=== PATIENT | male | born 1995 | race Two or more races ===

== ENCOUNTER 2018-01-12 00:28 | Emergency (ER) | payer OTHER ==
--- NOTE | 2018-01-12 00:48 | ER Report ---
History and Physical Time Seen By MD: 00:47 Hx. of Stated Complaint: PATIENT ATE A DESSERT; VOMITED AND STATES THAT HE DOES NOT FEEL GOOD; STATES THAT HE IS LIGHT HEADED AND HAS AN UPSET STOMACH HPI/ROS CHIEF COMPLAINT: nausea and lightheaded HISTORY OF PRESENT ILLNESS: This is a 22 year old male. He had sudden onset of lightheaded and nausea tonight, now with epigastric area pain. Had eaten an dessert that he thinks caused the problems. He was in good health previously and has no complaints prior to tonight. He denies any diarrhea or trouble with bowel. No problems with urination. No shortness of breath or cough. Allergies: Coded Allergies: No Known Drug Allergies (Unverified , 01/12/18) Home Meds Active Scripts Ondansetron (ZOFRAN ODT) 4 Mg Tab.rapdis, 4 MG PO Q6H PRN for NAUSEA/VOMITING, #20 TAB.ROSEANN 0 Refills Prov:SALENA MATAMOROS MD 01/12/18 Reviewed Nurses Notes: Yes Hx Substance Use Disorder: No Constitutional Vital Sign - Last 24 Hours 01/12/18 01/12/18 01/12/18 01/12/18 00:28 00:34 00:36 00:46 Temp 98.4 Pulse ??? 77 Resp 17 B/P (MAP) 122/57 122/57 (78) 103/39 (60) Pulse Ox 98 O2 Delivery Room Air 01/12/18 01/12/18 01/12/18 01/12/18 00:58 01:00 01:30 01:58 Pulse 78 B/P (MAP) 103/47 (65) 101/49 (66) Pulse Ox 93 93 01/12/18 01/12/18 02:00 02:13 B/P (MAP) 86/49 (61) 96/34 (54) Intake and Output 01/11/18 01/11/18 01/12/18 15:00 23:00 07:00 Intake Total 1000 ml Balance 1000 ml Physical Exam General Appearance: The patient is alert. No acute distress. Eyes: Pupils are equal, round. No pallor, injection or icterus. ENT: Mucous membranes are moist. Normal oral mucosa. Posterior oropharynx is normal. Neck: Supple and non tender. No lymphadenopathy. Respiratory: Lungs are clear to auscultation. Cardiovascular: Regular rate and rhythm. No murmurs, gallops or rubs. Normal capillary refill. Gastrointestinal: Abdomen is soft, with some epigastric discomfort on palpation. Nondistended. Normal active bowel sounds. No costovertebral angle tenderness with percussion. Neurological: Alert and oriented x3. No focal neurologic deficits Skin: Warm and dry. DIFFERENTIAL DIAGNOSIS: After history and physical exam, differential diagnosis was considered for epigastric pain, nausea and vomiting, likely due to bad food exposure, but will check for other causes of epigastric pain as well. Medical Decision Making Data Points Result Diagram: 01/12/18 0043 01/12/18 0043 Laboratory Hematology Test 01/12/18 00:43 01/12/18 01:16 Red Blood Count 5.43 M/uL (4.00-5.60) Mean Corpuscular Volume 90.7 fL (80.0-96.0) Mean Corpuscular Hemoglobin 31.8 pg (26.0-33.0) Mean Corpuscular Hemoglobin Concent 35.1 g/dL (32.0-36.0) Red Cell Distribution Width 13.7 % (11.5-14.5) Mean Platelet Volume 9.6 fL (7.2-11.1) Neutrophils (%) (Auto) 65.9 % (39.4-72.5) Lymphocytes (%) (Auto) 22.6 % (17.6-49.6) Monocytes (%) (Auto) 5.6 % (4.1-12.4) Eosinophils (%) (Auto) 5.4 % (0.4-6.7) Basophils (%) (Auto) 0.5 % (0.3-1.4) Nucleated RBC Relative Count (auto) 0.1 /100WBC Neutrophils # (Auto) 4.1 K/uL (2.0-7.4) Lymphocytes # (Auto) 1.4 K/uL (1.3-3.6) Monocytes # (Auto) 0.4 K/uL (0.3-1.0) Eosinophils # (Auto) 0.3 K/uL (0.0-0.5) Basophils # (Auto) 0.0 K/uL (0.0-0.1) Nucleated RBC Absolute Count (auto) 0.01 K/uL Sodium Level 141 mmol/L (137-145) Potassium Level 3.7 mmol/L (3.5-5.0) Chloride Level 102 mmol/L (98-107) Carbon Dioxide Level 27 mmol/L (22-30) Blood Urea Nitrogen 21 mg/dl (9-21) Creatinine 1.00 mg/dl (0.66-1.25) Glomerular Filtration Rate Calc > 60.0 Random Glucose 136 mg/dl (75-110) Calcium Level 8.7 mg/dl (8.4-10.2) Total Bilirubin 0.5 mg/dl (0.2-1.3) Aspartate Amino Transf (AST/SGOT) 40 U/L (0-35) Alanine Aminotransferase (ALT/SGPT) 87 U/L (0-56) Alkaline Phosphatase 61 U/L (0-126) Total Protein 7.6 g/dl (6.3-8.2) Albumin 4.3 g/dl (3.5-5.0) Amylase Level 72 U/L (0-110) Lipase 74 U/L (23-300) Urine Color Yellow Urine Clarity Clear Urine pH 5.0 pH (4.8-9.5) Urine Specific [place] 1.028 Urine Protein Negative mg/dL (NEGATIVE) Urine Glucose (UA) Negative mg/dL (NEGATIVE) Urine Ketones Negative mg/dL (NEGATIVE) Urine Blood Negative (NEGATIVE) Urine Nitrite Negative (NEGATIVE) Urine Bilirubin Negative (NEGATIVE) Urine Urobilinogen 2.0 mg/dL (0.2-1.9) Urine Leukocyte Esterase Negative (NEGATIVE) Urine RBC <1 /HPF (0-2/HPF) Urine WBC <1 /HPF (0-5/HPF) Urine Squamous Epithelial Cells None /LPF (</=FEW) Urine Bacteria Negative /HPF (NONE-FEW) Urine Mucus Few /HPF (NONE-FEW) Chemistry Test 01/12/18 00:43 01/12/18 01:16 White Blood Count 6.3 k/uL (4.5-11.0) Red Blood Count 5.43 M/uL (4.00-5.60) Hemoglobin 17.3 g/dL (14.0-18.0) Hematocrit 49.3 % (42.0-52.0) Mean Corpuscular Volume 90.7 fL (80.0-96.0) Mean Corpuscular Hemoglobin 31.8 pg (26.0-33.0) Mean Corpuscular Hemoglobin Concent 35.1 g/dL (32.0-36.0) Red Cell Distribution Width 13.7 % (11.5-14.5) Platelet Count 198 K/uL (150-450) Mean Platelet Volume 9.6 fL (7.2-11.1) Neutrophils (%) (Auto) 65.9 % (39.4-72.5) Lymphocytes (%) (Auto) 22.6 % (17.6-49.6) Monocytes (%) (Auto) 5.6 % (4.1-12.4) Eosinophils (%) (Auto) 5.4 % (0.4-6.7) Basophils (%) (Auto) 0.5 % (0.3-1.4) Nucleated RBC Relative Count (auto) 0.1 /100WBC Neutrophils # (Auto) 4.1 K/uL (2.0-7.4) Lymphocytes # (Auto) 1.4 K/uL (1.3-3.6) Monocytes # (Auto) 0.4 K/uL (0.3-1.0) Eosinophils # (Auto) 0.3 K/uL (0.0-0.5) Basophils # (Auto) 0.0 K/uL (0.0-0.1) Nucleated RBC Absolute Count (auto) 0.01 K/uL Glomerular Filtration Rate Calc > 60.0 Calcium Level 8.7 mg/dl (8.4-10.2) Total Bilirubin 0.5 mg/dl (0.2-1.3) Aspartate Amino Transf (AST/SGOT) 40 U/L (0-35) Alanine Aminotransferase (ALT/SGPT) 87 U/L (0-56) Alkaline Phosphatase 61 U/L (0-126) Total Protein 7.6 g/dl (6.3-8.2) Albumin 4.3 g/dl (3.5-5.0) Amylase Level 72 U/L (0-110) Lipase 74 U/L (23-300) Urine Color Yellow Urine Clarity Clear Urine pH 5.0 pH (4.8-9.5) Urine Specific [place] 1.028 Urine Protein Negative mg/dL (NEGATIVE) Urine Glucose (UA) Negative mg/dL (NEGATIVE) Urine Ketones Negative mg/dL (NEGATIVE) Urine Blood Negative (NEGATIVE) Urine Nitrite Negative (NEGATIVE) Urine Bilirubin Negative (NEGATIVE) Urine Urobilinogen 2.0 mg/dL (0.2-1.9) Urine Leukocyte Esterase Negative (NEGATIVE) Urine RBC <1 /HPF (0-2/HPF) Urine WBC <1 /HPF (0-5/HPF) Urine Squamous Epithelial Cells None /LPF (</=FEW) Urine Bacteria Negative /HPF (NONE-FEW) Urine Mucus Few /HPF (NONE-FEW) Urinalysis Test 01/12/18 01:16 Urine Color Yellow Urine Clarity Clear Urine pH 5.0 pH (4.8-9.5) Urine Specific [place] 1.028 Urine Protein Negative mg/dL (NEGATIVE) Urine Glucose (UA) Negative mg/dL (NEGATIVE) Urine Ketones Negative mg/dL (NEGATIVE) Urine Blood Negative (NEGATIVE) Urine Nitrite Negative (NEGATIVE) Urine Bilirubin Negative (NEGATIVE) Urine Urobilinogen 2.0 mg/dL (0.2-1.9) Urine Leukocyte Esterase Negative (NEGATIVE) Urine RBC <1 /HPF (0-2/HPF) Urine WBC <1 /HPF (0-5/HPF) Urine Squamous Epithelial Cells None /LPF (</=FEW) Urine Bacteria Negative /HPF (NONE-FEW) Urine Mucus Few /HPF (NONE-FEW) ED Course/Re-evaluation Clinical Indication for ER IV: Hydration, IV Access ED Course Labs unremarkable. The patient felt better with a GI cocktail, Protonix and Zofran and a liter of fluid. Likely preformed food toxin/bad food exposure, although can't rule out viral process as well although this is felt to be less likely. Recommended increasing fluid intake and rest over the next few days. Decision to Disposition Date: Jan 12, 2018 Decision to Disposition Time: 02:03 Depart Departure Latest Vital Signs Vital Signs Date Time Temp Pulse Resp B/P (MAP) Pulse Ox O2 Delivery O2 Flow Rate FiO2 01/12/18 02:13 96/34 (54) 01/12/18 01:58 93 01/12/18 00:58 78 01/12/18 00:34 98.4 17 Room Air Impression: Primary Impression: Food poisoning Condition: Improved Disposition: HOME OR SELF-CARE New Scripts Ondansetron (ZOFRAN ODT) 4 Mg Tab.rapdis 4 MG PO Q6H PRN for NAUSEA/VOMITING, #20 TAB.ROSEANN 0 Refills Prov: SALENA MATAMOROS MD 01/12/18 Patient Instructions: Food Poisoning (ED) Additional Instructions: Rest and increase fluids over the next few days. You may take Zofran 4mg, one every 6hours as needed for nausea. You can use an anti-acid medicine for nausea and stomach pain. Problem Qualifiers Primary Impression: Food poisoning Encounter type: initial encounter Injury intent: accidental or unintenti onal Qualified Codes: T62.91XA - Toxic effect of unspecified noxious substance eaten as food, accidental (unintentional), initial encounter SALENA MATAMOROS MD Jan 12, 2018 00:48
[2018-01-12] MEDS ORDERED: PANTOPRAZOLE SOD 40 MG IV VIAL IVP ONE (00:55)
[2018-01-12] MEDS ORDERED: ONDANSETRON 4 MG/2 ML VIAL IVP ONE (00:55)
[2018-01-12] MEDS ORDERED: NS(*) 0.9% 1000 ML BAG 1,000 ML IV ONE (00:55)
[2018-01-12 01:06] LABS: PLATELET COUNT, AUTOMATED 198 K/uL (150-450)
[2018-01-12] MEDS ORDERED: LIDOCAINE 2% VISC SLN 15ML UDC PO ONE (01:25)
[2018-01-12] MEDS ORDERED: ATRO/SCOPOL/HYOSCY/PB 5 ML ELX PO ONE (01:25)
[2018-01-12] MEDS ORDERED: MAG HYD/AL HYD/SIMETH 30ML UDC PO ONE (01:25)
[2018-01-12] MEDS ORDERED: ONDA4TAB PO (02:05)
[2018-01-12] MEDS ORDERED: ONDANSETRON 4 MG ODT TH SL ONE (02:10)
[2018-01-12 02:13] VITALS: BP 96/34
== END 2018-01-12 02:25 | disposition home or self-care (01) ==
LOC: ER 00:40
DX: T62.91XA Toxic effect of unspecified noxious substance eaten as food, accidental (unintentional), initial encounter (principal)
CPT/HCPCS: 81001; 82150; 83690; 85025; 96361; 96374; 96375; 99284; C9113; J2405; J7030; S0119; 82040; 82247; 82310; 82374; 82435; 82565; 82947; 84075; 84132; 84155; 84295; 84450; 84460; 84520

== ENCOUNTER 2018-04-29 10:29 | Emergency (ER) | payer OTHER ==
[~2018-04-29 10:29] MED LIST: ONDA4TAB PO
[2018-04-29 10:39] VITALS: BP 145/111
[2018-04-29 11:19] LABS: PLATELET COUNT, AUTOMATED 210 K/uL (150-450)
--- NOTE | 2018-05-05 15:49 | ER Report ---
History and Physical Time Seen By MD: 10:35 Hx. of Stated Complaint: PATIENT REPORTS THAT HE HAS BEEN FEELING SUICIDAL FOR MOST OF THE SEMESTER. 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 Patient reports having increased life stressors with school and family. Denies prior history of suicide attempts, seeing therapist, or plan. Denies taking medications in attempt to harm himself. He does admit to alcohol and cocaine use. REVIEW OF SYSTEMS: Constitutional: No fever, no chills. Eyes: No discharge. ENT: No sore throat. Cardiovascular: No chest pain, no palpitations. Respiratory: No cough, no shortness of breath. Gastrointestinal: No abdominal pain, no vomiting. Genitourinary: No hematuria. Musculoskeletal: No back pain. Skin: No rashes. Neurological: No headache. Psych: + depression SI without plan Allergies: Coded Allergies: No Known Drug Allergies (Unverified , 05/04/18) Home Meds Discontinued Scripts Ondansetron (ZOFRAN ODT) 4 Mg Tab.rapdis, 4 MG PO Q6H PRN for NAUSEA/VOMITING, #20 TAB.ROSEANN 0 Refills Prov:SALENA MATAMOROS MD 01/12/18 Hx Substance Use Disorder: No Physical Exam General Appearance: The patient is alert, has no immediate need for airway protection and no signs of toxicity. No acute distress Eyes: Pupils equal and round no pallor or injection. ENT, Mouth: Mucous membranes are moist. Respiratory: There are no retractions, lungs are clear to auscultation. Cardiovascular: Regular rate and rhythm. [ ] Gastrointestinal: Abdomen is soft and non tender, no masses, bowel sounds no rmal. Neurological: No focal neurological deficits Skin: Warm and dry, no rashes. Musculoskeletal: Neck is supple non tender. Extremities are nontender, nonswollen and have full range of motion. Psychiatric: Suicidal ideations without plan, depressed appearing DIFFERENTIAL DIAGNOSIS: After history and physical exam differential diagnosis was considered for depression, suicidal ideations, increased life stressors, substance abuse Medical Decision Making Data Points Laboratory Hematology Test 04/29/18 10:32 04/29/18 11:13 Urine Color Yellow Urine Clarity Clear Urine pH 7.0 pH (4.8-9.5) Urine Specific [place] 1.023 Urine Protein 30 mg/dL (NEGATIVE) Urine Glucose (UA) Negative mg/dL (NEGATIVE) Urine Ketones 80 mg/dL (NEGATIVE) Urine Blood Negative (NEGATIVE) Urine Nitrite Negative (NEGATIVE) Urine Bilirubin Negative (NEGATIVE) Urine Urobilinogen 4.0 mg/dL (0.2-1.9) Urine Leukocyte Esterase Negative (NEGATIVE) Urine RBC 1 /HPF (0-2/HPF) Urine WBC None /HPF (0-5/HPF) Urine Squamous Epithelial Cells None /LPF (</=FEW) Urine Bacteria Negative /HPF (NONE-FEW) Urine Mucus Few /HPF (NONE-FEW) Urine Opiates Screen Negative Urine Barbiturates Screen Negative Ur Tricyclic Antidepressants Screen Negative Urine Phencyclidine Screen Negative Urine Amphetamines Screen Negative Urine Benzodiazepines Screen Negative Urine Cocaine Screen Negative Urine Cannabinoids Screen Positive Red Blood Count 6.22 M/uL (4.00-5.60) Mean Corpuscular Volume 89.3 fL (80.0-96.0) Mean Corpuscular Hemoglobin 30.7 pg (26.0-33.0) Mean Corpuscular Hemoglobin Concent 34.4 g/dL (32.0-36.0) Red Cell Distribution Width 13.0 % (11.5-14.5) Mean Platelet Volume 9.6 fL (7.2-11.1) Neutrophils (%) (Auto) 77.5 % (39.4-72.5) Lymphocytes (%) (Auto) 12.2 % (17.6-49.6) Monocytes (%) (Auto) 8.3 % (4.1-12.4) Eosinophils (%) (Auto) 1.6 % (0.4-6.7) Basophils (%) (Auto) 0.4 % (0.3-1.4) Nucleated RBC Relative Count (auto) 0.1 /100WBC Neutrophils # (Auto) 6.1 K/uL (2.0-7.4) Lymphocytes # (Auto) 1.0 K/uL (1.3-3.6) Monocytes # (Auto) 0.7 K/uL (0.3-1.0) Eosinophils # (Auto) 0.1 K/uL (0.0-0.5) Basophils # (Auto) 0.0 K/uL (0.0-0.1) Nucleated RBC Absolute Count (auto) 0.00 K/uL Sodium Level 141 mmol/L (137-145) Potassium Level 3.7 mmol/L (3.5-5.0) Chloride Level 103 mmol/L (98-107) Carbon Dioxide Level 21 mmol/L (22-30) Blood Urea Nitrogen 13 mg/dl (9-21) Creatinine 0.80 mg/dl (0.66-1.25) Glomerular Filtration Rate Calc > 60.0 Random Glucose 97 mg/dl (75-110) Calcium Level 10.1 mg/dl (8.4-10.2) Magnesium Level 1.8 mg/dl (1.7-2.2) Total Bilirubin 2.2 mg/dl (0.2-1.3) Aspartate Amino Transf (AST/SGOT) 37 U/L (0-35) Alanine Aminotransferase (ALT/SGPT) 73 U/L (0-56) Alkaline Phosphatase 86 U/L (0-126) Total Protein 8.4 g/dl (6.3-8.2) Albumin 4.5 g/dl (3.5-5.0) Thyroid Stimulating Hormone (TSH) 1.11 uIU/ml (0.46-4.68) Salicylates Level < 10 mg/L Salicylate Last Dose Date unknown Acetaminophen Level < 10 ug/ml Serum Alcohol < 10 mg/dl Chemistry Test 04/29/18 10:32 04/29/18 11:13 Urine Color Yellow Urine Clarity Clear Urine pH 7.0 pH (4.8-9.5) Urine Specific [place] 1.023 Urine Protein 30 mg/dL (NEGATIVE) Urine Glucose (UA) Negative mg/dL (NEGATIVE) Urine Ketones 80 mg/dL (NEGATIVE) Urine Blood Negative (NEGATIVE) Urine Nitrite Negative (NEGATIVE) Urine Bilirubin Negative (NEGATIVE) Urine Urobilinogen 4.0 mg/dL (0.2-1.9) Urine Leukocyte Esterase Negative (NEGATIVE) Urine RBC 1 /HPF (0-2/HPF) Urine WBC None /HPF (0-5/HPF) Urine Squamous Epithelial Cells None /LPF (</=FEW) Urine Bacteria Negative /HPF (NONE-FEW) Urine Mucus Few /HPF (NONE-FEW) Urine Opiates Screen Negative Urine Barbiturates Screen Negative Ur Tricyclic Antidepressants Screen Negative Urine Phencyclidine Screen Negative Urine Amphetamines Screen Negative Urine Benzodiazepines Screen Negative Urine Cocaine Screen Negative Urine Cannabinoids Screen Positive White Blood Count 7.9 k/uL (4.5-11.0) Red Blood Count 6.22 M/uL (4.00-5.60) Hemoglobin 19.1 g/dL (14.0-18.0) Hematocrit 55.5 % (42.0-52.0) Mean Corpuscular Volume 89.3 fL (80.0-96.0) Mean Corpuscular Hemoglobin 30.7 pg (26.0-33.0) Mean Corpuscular Hemoglobin Concent 34.4 g/dL (32.0-36.0) Red Cell Distribution Width 13.0 % (11.5-14.5) Platelet Count 210 K/uL (150-450) Mean Platelet Volume 9.6 fL (7.2-11.1) Neutrophils (%) (Auto) 77.5 % (39.4-72.5) Lymphocytes (%) (Auto) 12.2 % (17.6-49.6) Monocytes (%) (Auto) 8.3 % (4.1-12.4) Eosinophils (%) (Auto) 1.6 % (0.4-6.7) Basophils (%) (Auto) 0.4 % (0.3-1.4) Nucleated RBC Relative Count (auto) 0.1 /100WBC Neutrophils # (Auto) 6.1 K/uL (2.0-7.4) Lymphocytes # (Auto) 1.0 K/uL (1.3-3.6) Monocytes # (Auto) 0.7 K/uL (0.3-1.0) Eosinophils # (Auto) 0.1 K/uL (0.0-0.5) Basophils # (Auto) 0.0 K/uL (0.0-0.1) Nucleated RBC Absolute Count (auto) 0.00 K/uL Glomerular Filtration Rate Calc > 60.0 Calcium Level 10.1 mg/dl (8.4-10.2) Magnesium Level 1.8 mg/dl (1.7-2.2) Total Bilirubin 2.2 mg/dl (0.2-1.3) Aspartate Amino Transf (AST/SGOT) 37 U/L (0-35) Alanine Aminotransferase (ALT/SGPT) 73 U/L (0-56) Alkaline Phosphatase 86 U/L (0-126) Total Protein 8.4 g/dl (6.3-8.2) Albumin 4.5 g/dl (3.5-5.0) Thyroid Stimulating Hormone (TSH) 1.11 uIU/ml (0.46-4.68) Salicylates Level < 10 mg/L Salicylate Last Dose Date unknown Acetaminophen Level < 10 ug/ml Serum Alcohol < 10 mg/dl Toxicology Test 04/29/18 10:32 04/29/18 11:13 Urine Opiates Screen Negative Urine Barbiturates Screen Negative Ur Tricyclic Antidepressants Screen Negative Urine Phencyclidine Screen Negative Urine Amphetamines Screen Negative Urine Benzodiazepines Screen Negative Urine Cocaine Screen Negative Urine Cannabinoids Screen Positive Salicylates Level < 10 mg/L Salicylate Last Dose Date unknown Acetaminophen Level < 10 ug/ml Serum Alcohol < 10 mg/dl Urinalysis Test 04/29/18 10:32 Urine Color Yellow Urine Clarity Clear Urine pH 7.0 pH (4.8-9.5) Urine Specific [place] 1.023 Urine Protein 30 mg/dL (NEGATIVE) Urine Glucose (UA) Negative mg/dL (NEGATIVE) Urine Ketones 80 mg/dL (NEGATIVE) Urine Blood Negative (NEGATIVE) Urine Nitrite Negative (NEGATIVE) Urine Bilirubin Negative (NEGATIVE) Urine Urobilinogen 4.0 mg/dL (0.2-1.9) Urine Leukocyte Esterase Negative (NEGATIVE) Urine RBC 1 /HPF (0-2/HPF) Urine WBC None /HPF (0-5/HPF) Urine Squamous Epithelial Cells None /LPF (</=FEW) Urine Bacteria Negative /HPF (NONE-FEW) Urine Mucus Few /HPF (NONE-FEW) ED Course/Re-evaluation ED Course 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 Patient denied suicidal plan at this time and does admit to cocaine, cannabis and alcohol use. Tylenol and salicylate levels were negative. Patient was seen by behavioral health chemical lab technician who supplied him with outpatient resources and patient again contracted for safety prior to discharge. Patient was advised to return promptly if he developed worsening suicidal ideation or suicidal plan. Decision to Disposition Date: Apr 29, 2018 Decision to Disposition Time: 12:00 Depart Departure Impression: Primary Impression: Suicidal ideations Condition: Improved Disposition: HOME OR SELF-CARE New Scripts No Active Prescriptions or Reported Meds Departure Forms: Medications Reconciliation, Patient Portal Information, ER Transition Record Patient Instructions: Depression (ED) Additional Instructions: Please return promptly if you develop thoughts of self-harm, worsening depression. You been provided with outpatient resources for psychiatric follow- up. Please call the suicide hotline if you develop thoughts of self-harm. Please consider cessation of substance abuse as this may increase your depression. GRACE HUNTER DO May 05, 2018 15:49
== END 2018-04-29 12:07 | disposition home or self-care (01) ==
LOC: ER 10:43
DX: R45.851 Suicidal ideations (principal)
CPT/HCPCS: 80305; 80320; 80329; 81001; 82040; 82247; 82310; 82374; 82435; 82565; 82947; 83735; 84075; 84132; 84155; 84295; 84443; 84450; 84460; 84520; 85025; 99283

== ENCOUNTER 2018-05-17 03:00 | Emergency (ER) | payer OTHER ==
[~2018-05-17 03:00] MED LIST changes: +BUPR-126 PO; +CHOL10005 PO; +MULT-1379 PO; +NIC10R INH; +NICOTROL INHALER PO; +TRAZ150T8 PO
--- NOTE | 2018-05-17 03:09 | ER Report ---
History and Physical Time Seen By MD: 03:09 Hx. of Stated Complaint: patient fell onleft arm yesterday while snowboarding, didn't start having pain in left elbow until he woke up around 0230 this am. HPI/ROS CHIEF COMPLAINT: Left elbow pain HISTORY OF PRESENT ILLNESS: Patient is a 22-year-old male here with complaints of left elbow pain after falling on his left elbow yesterday while snowboarding. Patient did not have complaints of pain until approximately 2:30 this morning when the patient woke up. He reports pain with range of motion of the elbow though there is no deformity or neurovascular compromise distal to the injury site. Patient denies further injuries at this time REVIEW OF SYSTEMS: Constitutional: No fever, no chills. Musculoskeletal: + left elbow pain with ROM and palpation Skin: No rashes. Neurological: NV intact in the distal extremity Allergies: Coded Allergies: No Known Drug Allergies (Unverified , 05/17/18) Home Meds Active Scripts Tramadol Hcl (TRAMADOL HCL) 50 Mg Tablet, 50 MG PO Q6H PRN for PAIN, #6 TAB 0 Refills Prov:HUNTERGRACE Mackey DO 05/17/18 Reported Medications Bupropion Hcl (WELLBUTRIN SR) 150 Mg Tablet.er, 150 MG PO QAM, TAB 05/07/18 Cholecalciferol (Vitamin D3) (VITAMIN D3) 1,000 Unit Tablet, 4000 UNIT PO QDAYA, TAB 05/07/18 Trazodone Hcl (TRAZODONE HCL) 150 Mg Tablet, 50-150 MG PO QHS PRN for INSOMNIA TAKE 1/3 TO ONE TABLET (50 - 150 MG) ABOUT AN HOUR BEFORE YOU PLAN TO GO TO SLEEP. 05/07/18 Discontinued Reported Medications [Nicotrol Inhaler] No Conflict Check, 1 EA PO PRN PRN for NI 05/07/18 Nicotine (NICOTROL) 10 Mg/Inh Ctr, 10 MG INH Q2H PRN for NICOTINE REPLACEMENT 05/07/18 Multivits, W-Fe,Other Min (THERA-M) 1 Each Tablet, 1 EACH PO DAILY 05/07/18 Hx Smoking: Yes Smoking Status: Smoker: Status Unknown Hx Substance Use Disorder: No Constitutional Vital Sign - Last 24 Hours 05/17/18 03:04 Temp 98.5 Pulse 86 Resp 24 B/P (MAP) 121/61 Pulse Ox 91 O2 Delivery Room Air Physical Exam General Appearance: The patient is alert, has no immediate need for airway protection and no signs of toxicity. Mild distress due to pain Neurological: NV intact in distal extremity Skin: Warm and dry, no rashes. Musculoskeletal: Neck is supple non tender. + left elbow tender on examination and with ROM DIFFERENTIAL DIAGNOSIS: After history and physical exam differential diagnosis was considered for fracture, contusion, bursitis, tendinitis Medical Decision Making EKG/Imaging Imaging Location: [facility] - [place] Patient: Edmund Araiza : 1995 Visit/Account:[id number] Date of Sevice: 05/17/2018 ELBOW 3 VIEW LEFT HISTORY: fall Three-view examination of the elbow. FINDINGS: No acute bony pathology. Distal left humerus and proximal radius/ulna well- maintained. No joint effusion. Soft tissues unremarkable. IMPRESSION: 1. Negative left elbow ED Course/Re-evaluation ED Course Patient is a 22-year-old male here with complaints of left elbow pain which started approximately 2:30 this morning. Patient reportedly fell on the elbow yesterday while snowboarding however did not have pain until this morning. Patient was given Toradol for analgesia, x-ray imaging showed no acute fracture. Ice was applied to the elbow. Patient was advised to rest, ice, use sling, take NSAIDs as needed for primary pain control. Prescription provided for tramadol for breakthrough pain. Return precautions provided Decision to Disposition Date: May 17, 2018 Decision to Disposition Time: 04:49 Depart Departure Latest Vital Signs Vital Signs Date Time Temp Pulse Resp B/P (MAP) Pulse Ox O2 Delivery O2 Flow Rate FiO2 05/17/18 03:04 98.5 86 24 121/61 91 Room Air Impression: Primary Impression: Elbow pain Condition: Improved Disposition: HOME OR SELF-CARE New Scripts Tramadol Hcl (TRAMADOL HCL) 50 Mg Tablet 50 MG PO Q6H PRN for PAIN, #6 TAB 0 Refills Prov: GRACE HUNTER DO 05/17/18 Patient Instructions: Elbow Sprain (ED) Additional Instructions: No acute fracture is identified on x-ray imaging. You may ice, rest, use a sling, take NSAIDs as needed for primary pain control. Please follow-up with her family doctor in the next week for reevaluation and care. You may take 1 tramado l every 8 hours as needed for breakthrough pain control. GRACE HUNTER DO May 17, 2018 03:09
[2018-05-17] MEDS ORDERED: KETOROLAC 60 MG/2 ML VIAL IM ONE (03:15)
--- NOTE | 2018-05-17 04:30 | RADIOLOGY IMAGING REPORT ---
FACILITY: [facility] - [place] PATIENT NAME: Edmund Araiza : 1995 MR: [id number] V: [id number] EXAM DATE: ORDERING PHYSICIAN: GRACE HUNTER TECHNOLOGIST: Location: [facility] - [place] Patient: Edmund Araiza : 1995 Visit/Account:[id number] Date of Sevice: 05/17/2018 ELBOW 3 VIEW LEFT HISTORY: fall Three-view examination of the elbow. FINDINGS: No acute bony pathology. Distal left humerus and proximal radius/ulna well-maintained. No joint effus ion. Soft tissues unremarkable. IMPRESSION: 1. Negative left elbow Report Dictated By: Max Barnes MD at 05/17/2018 4:23 AM Report E-Signed By: Max Barnes MD at 05/17/2018 4:24 AM WSN:[id number]
[2018-05-17 04:41] VITALS: BP 99/55
[2018-05-17] MEDS ORDERED: TRAM-420 PO (04:41)
== END 2018-05-17 04:53 | disposition home or self-care (01) ==
LOC: ER 03:49
DX: M25.522 Pain in left elbow (principal); W19.XXXA Unspecified fall, initial encounter; Y93.23 Activity, snow (alpine) (downhill) skiing, snowboarding, sledding, tobogganing and snow tubing
CPT/HCPCS: 73080; 96372; 99283; A4565; J1885

== ENCOUNTER 2018-08-24 13:29 | Emergency (ER) | payer OTHER ==
[~2018-08-24 13:29] MED LIST changes: +TRAM-420 PO
[2018-08-24] MEDS ORDERED: HYDR-4228 PO (13:37)
--- NOTE | 2018-08-24 13:40 | ER Report ---
History and Physical Time Seen By MD: 13:40 Hx. of Stated Complaint: BRIGHT RED "CHUNKS" OF VOMIT AND DRY COUGH STARTED THIS AM HPI/ROS CHIEF COMPLAINT: Vomiting, cough HISTORY OF PRESENT ILLNESS: 23-year-old male patient presents to emergency room with complaint of vomiting and cough. Patient states that he woke up this morning had something eat. He states that that he became nauseated and vomited 2. He states that there was blood mixed with the vomit. He denies having any fevers or chills. He denies any diarrhea. Patient states that he has had a dry cough which also started today. Patient states that he is getting over a flu and has had a runny nose for the past few weeks. Patient states he is not taking any medications. He came in for evaluation as he was concerned about the blood in his vomit. REVIEW OF SYSTEMS: Respiratory: As noted above Cardiovascular: No chest pain, no palpitations. Gastrointestinal: As noted above Musculoskeletal: No back pain. Allergies: Coded Allergies: No Known Drug Allergies (Unverified , 08/24/18) Home Meds Active Scripts Ondansetron 4 Mg Odt (ONDANSETRON 4 MG ODT) 4 Mg Tab.rapdis, 4 MG PO Q6H PRN for NAUSEA/VOMITING, #20 TAB Prov:QUINCY SHETH 08/24/18 Reported Medications Hydroxyzine Hcl (HYDROXYZINE HCL) 50 Mg Tablet, PO HS PRN for SLEEP 08/24/18 Bupropion Hcl (WELLBUTRIN SR) 150 Mg Tablet.er, 150 MG PO QAM, TAB 05/07/18 Cholecalciferol (Vitamin D3) (VITAMIN D3) 1,000 Unit Tablet, 4000 UNIT PO QDAYA, TAB 05/07/18 Discontinued Reported Medications Trazodone Hcl (TRAZODONE HCL) 150 Mg Tablet, 50-150 MG PO QHS PRN for INSOMNIA TAKE 1/3 TO ONE TABLET (50 - 150 MG) ABOUT AN HOUR BEFORE YOU PLAN TO GO TO SLEEP. 05/07/18 Discontinued Scripts Tramadol Hcl (TRAMADOL HCL) 50 Mg Tablet, 50 MG PO Q6H PRN for PAIN, #6 TAB 0 Refills Prov:GRACE HUNTER DO 05/17/18 Past Medical/Surgical History Patient has a past medical history of suicide attempt. Patient denies any surgical history. Reviewed Nurses Notes: Yes Hx Smoking: Yes Smoking Status: Smoker: Status Unknown Hx Substance Use Disorder: No Constitutional Vital Sign - Last 24 Hours 08/24/18 08/24/18 08/24/18 08/24/18 13:32 13:45 14:15 14:30 Temp 98.2 Pulse 81 78 73 76 Resp 18 B/P (MAP) 134/51 118/85 (96) Pulse Ox 92 89 95 94 O2 Delivery Room Air 08/24/18 08/24/18 14:44 14:45 Pulse 82 B/P (MAP) 113/72 (86) Pulse Ox 95 Physical Exam General Appearance: The patient is alert, has no immediate need for airway protection and no current signs of toxicity. Respiratory: Chest is non tender, lungs are clear to auscultation. Cardiac: regular rate and rhythm Gastrointestinal: Abdomen is soft and diffusely tender, no masses, bowel sounds normal. Musculoskeletal: Neck: Neck is supple and non tender. Extremities have full range of motion and are non tender. Skin: No rashes or lesions. DIFFERENTIAL DIAGNOSIS: After history and physical exam differential diagnosis was considered for nausea and vomiting including but not limited to gastroenteritis, gastritis, appendicitis, and medication side effect. Included in the differential is upper respiratory infection, sinusitis. Medical Decision Making Data Points Result Diagram: 08/24/18 1348 08/24/18 1348 Laboratory Hematology Test 08/24/18 13:48 08/24/18 14:11 Red Blood Count 5.74 M/uL (4.00-5.60) Mean Corpuscular Volume 92.0 fL (80.0-96.0) Mean Corpuscular Hemoglobin 30.6 pg (26.0-33.0) Mean Corpuscular Hemoglobin Concent 33.3 g/dL (32.0-36.0) Red Cell Distribution Width 12.7 % (11.5-14.5) Mean Platelet Volume 9.0 fL (7.2-11.1) Neutrophils (%) (Auto) 77.7 % (39.4-72.5) Lymphocytes (%) (Auto) 15.9 % (17.6-49.6) Monocytes (%) (Auto) 5.1 % (4.1-12.4) Eosinophils (%) (Auto) 1.0 % (0.4-6.7) Basophils (%) (Auto) 0.3 % (0.3-1.4) Nucleated RBC Relative Count (auto) 0.0 /100WBC Neutrophils # (Auto) 5.1 K/uL (2.0-7.4) Lymphocytes # (Auto) 1.0 K/uL (1.3-3.6) Monocytes # (Auto) 0.3 K/uL (0.3-1.0) Eosinophils # (Auto) 0.1 K/uL (0.0-0.5) Basophils # (Auto) 0.0 K/uL (0.0-0.1) Nucleated RBC Absolute Count (auto) 0.00 K/uL Sodium Level 137 mmol/L (137-145) Potassium Level 4.4 mmol/L (3.5-5.0) Chloride Level 101 mmol/L (98-107) Carbon Dioxide Level 30 mmol/L (22-30) Blood Urea Nitrogen 17 mg/dl (9-21) Creatinine 0.90 mg/dl (0.66-1.25) Glomerular Filtration Rate Calc > 60.0 Random Glucose 98 mg/dl (75-110) Calcium Level 9.1 mg/dl (8.4-10.2) Total Bilirubin 0.6 mg/dl (0.2-1.3) Aspartate Amino Transf (AST/SGOT) 40 U/L (0-35) Alanine Aminotransferase (ALT/SGPT) 59 U/L (0-56) Alkaline Phosphatase 73 U/L (0-126) Total Protein 8.0 g/dl (6.3-8.2) Albumin 4.4 g/dl (3.5-5.0) Amylase Level 74 U/L (0-110) Lipase 85 U/L (23-300) Helicobacter pylori IgG Antibody Negative (NEGATIVE) Urine Color Yellow Urine Clarity Clear Urine pH 8.0 pH (4.8-9.5) Urine Specific [place] 1.025 Urine Protein Negative mg/dL (NEGATIVE) Urine Glucose (UA) Negative mg/dL (NEGATIVE) Urine Ketones Negative mg/dL (NEGATIVE) Urine Blood Negative (NEGATIVE) Urine Nitrite Negative (NEGATIVE) Urine Bilirubin Negative (NEGATIVE) Urine Urobilinogen Negative mg/dL (0.2-1.9) Urine Leukocyte Esterase Negative (NEGATIVE) Urine RBC 1 /HPF (0-2/HPF) Urine WBC <1 /HPF (0-5/HPF) Urine Squamous Epithelial Cells None /LPF (</=FEW) Urine Bacteria Negative /HPF (NONE-FEW) Urine Mucus None /HPF (NONE-FEW) Chemistry Test 08/24/18 13:48 08/24/18 14:11 White Blood Count 6.5 k/uL (4.5-11.0) Red Blood Count 5.74 M/uL (4.00-5.60) Hemoglobin 17.6 g/dL (14.0-18.0) Hematocrit 52.8 % (42.0-52.0) Mean Corpuscular Volume 92.0 fL (80.0-96.0) Mean Corpuscular Hemoglobin 30.6 pg (26.0-33.0) Mean Corpuscular Hemoglobin Concent 33.3 g/dL (32.0-36.0) Red Cell Distribution Width 12.7 % (11.5-14.5) Platelet Count 262 K/uL (150-450) Mean Platelet Volume 9.0 fL (7.2-11.1) Neutrophils (%) (Auto) 77.7 % (39.4-72.5) Lymphocytes (%) (Auto) 15.9 % (17.6-49.6) Monocytes (%) (Auto) 5.1 % (4.1-12.4) Eosinophils (%) (Auto) 1.0 % (0.4-6.7) Basophils (%) (Auto) 0.3 % (0.3-1.4) Nucleated RBC Relative Count (auto) 0.0 /100WBC Neutrophils # (Auto) 5.1 K/uL (2.0-7.4) Lymphocytes # (Auto) 1.0 K/uL (1.3-3.6) Monocytes # (Auto) 0.3 K/uL (0.3-1.0) Eosinophils # (Auto) 0.1 K/uL (0.0-0.5) Basophils # (Auto) 0.0 K/uL (0.0-0.1) Nucleated RBC Absolute Count (auto) 0.00 K/uL Glomerular Filtration Rate Calc > 60.0 Calcium Level 9.1 mg/dl (8.4-10.2) Total Bilirubin 0.6 mg/dl (0.2-1.3) Aspartate Amino Transf (AST/SGOT) 40 U/L (0-35) Alanine Aminotransferase (ALT/SGPT) 59 U/L (0-56) Alkaline Phosphatase 73 U/L (0-126) Total Protein 8.0 g/dl (6.3-8.2) Albumin 4.4 g/dl (3.5-5.0) Amylase Level 74 U/L (0-110) Lipase 85 U/L (23-300) Helicobacter pylori IgG Antibody Negative (NEGATIVE) Urine Color Yellow Urine Clarity Clear Urine pH 8.0 pH (4.8-9.5) Urine Specific [place] 1.025 Urine Protein Negative mg/dL (NEGATIVE) Urine Glucose (UA) Negative mg/dL (NEGATIVE) Urine Ketones Negative mg/dL (NEGATIVE) Urine Blood Negative (NEGATIVE) Urine Nitrite Negative (NEGATIVE) Urine Bilirubin Negative (NEGATIVE) Urine Urobilinogen Negative mg/dL (0.2-1.9) Urine Leukocyte Esterase Negative (NEGATIVE) Urine RBC 1 /HPF (0-2/HPF) Urine WBC <1 /HPF (0-5/HPF) Urine Squamous Epithelial Cells None /LPF (</=FEW) Urine Bacteria Negative /HPF (NONE-FEW) Urine Mucus None /HPF (NONE-FEW) Urinalysis Test 08/24/18 14:11 Urine Color Yellow Urine Clarity Clear Urine pH 8.0 pH (4.8-9.5) Urine Specific [place] 1.025 Urine Protein Negative mg/dL (NEGATIVE) Urine Glucose (UA) Negative mg/dL (NEGATIVE) Urine Ketones Negative mg/dL (NEGATIVE) Urine Blood Negative (NEGATIVE) Urine Nitrite Negative (NEGATIVE) Urine Bilirubin Negative (NEGATIVE) Urine Urobilinogen Negative mg/dL (0.2-1.9) Urine Leukocyte Esterase Negative (NEGATIVE) Urine RBC 1 /HPF (0-2/HPF) Urine WBC <1 /HPF (0-5/HPF) Urine Squamous Epithelial Cells None /LPF (</=FEW) Urine Bacteria Negative /HPF (NONE-FEW) Urine Mucus None /HPF (NONE-FEW) EKG/Imaging Imaging Exam type: ABDOMEN AP ERECT AND/OR DECUB History: cough and vomiting blood Comparison: None. Findings: Supine and upright views the abdomen demonstrate a nonspecific bowel gas pattern. There is no gross evidence of organomegaly or pathologic intra- abdominal calcifications IMPRESSION: 1. Nonspecific bowel gas pattern Report Dictated By: Leilani Chow MD at 08/24/2018 2:27 PM Report E-Signed By: Leilani Chow MD at 08/24/2018 2:28 PM Exam type: CHEST PA LAT History: cough and vomiting blood Comparison: None. Findings: The lungs are free of acute effusions, infiltrates or edema. The cardiac silhouette is normal in size. The trachea is in midline. Visualized bones are unremarkable for age IMPRESSION: 1. No acute cardiopulmonary process is seen Report Dictated By: Leilani Chow MD at 08/24/2018 2:26 PM Report E-Signed By: Leilani Chow MD at 08/24/2018 2:27 PM ED Course/Re-evaluation ED Course Patient is admitted and examined, history and physical were obtained. Differential diagnoses were considered. On examination lungs are clear, heart regular, abdomen is soft and diffusely tender. IV was started, a CBC, CMP, uri nalysis were obtained. Lab results were unremarkable. A chest x-ray and acute abdominal x-ray were done. Those results were negative as well. H. pylori was done which was negative. I discussed the findings with patient. I believe this likely a viral gastroenteritis. We will go ahead and treat him with some nausea medication, have him go on a clear liquid diet for the next 24 hours. He is follow-up with his primary care provider next week. History the emergency room if condition worsens. Patient verbalized understanding and agreement with plan. Decision to Disposition Date: Aug 24, 2018 Decision to Disposition Time: 14:39 Depart Departure Latest Vital Signs Vital Signs Date Time Temp Pulse Resp B/P (MAP) Pulse Ox O2 Delivery O2 Flow Rate FiO2 08/24/18 14:45 82 95 08/24/18 14:44 113/72 (86) 08/24/18 13:32 98.2 18 Room Air Impression: Primary Impression: Gastroenteritis Additional Impression: Cough Condition: Improved Disposition: HOME OR SELF-CARE New Scripts Ondansetron 4 Mg Odt (ONDANSETRON 4 MG ODT) 4 Mg Tab.rapdis 4 MG PO Q6H PRN for NAUSEA/VOMITING, #20 TAB Prov: QUINCY SHETH 08/24/18 Patient Instructions: Gastroenteritis (ED) Additional Instructions: Increase fluid intake. Clear liquid diet for the next 24-48 hours. After that you may advance diet as tolerated starting with complex carbohydrates; rice, bread or pasta. Follow up with your primary care provider in the next week. Return to the ER if condition worsens. Take cough and cold medication for the cough. Problem Qualifiers QUINCY SHETH Aug 24, 2018 13:40
[2018-08-24] MEDS ORDERED: NS(*) 0.9% 1000 ML BAG 1,000 ML IV ONE (13:44)
[2018-08-24] MEDS ORDERED: ONDANSETRON 4 MG/2 ML VIAL IVP ONE (13:45)
[2018-08-24 14:01] LABS: PLATELET COUNT, AUTOMATED 262 K/uL (150-450)
--- NOTE | 2018-08-24 14:30 | RADIOLOGY IMAGING REPORT ---
FACILITY: [facility] PATIENT NAME: Edmund Araiza : 1995 MR: [id number] V: [id number] EXAM DATE: ORDERING PHYSICIAN: QUINCY SHETH TECHNOLOGIST: Location: [facility] Patient: Edmund Araiza : 1995 Visit/Account:[id number] Date of Sevice: 08/24/2018 Exam type: CHEST PA LAT History: cough and vomiting blood Comparison: None. Findings: The lungs are free of acute effusions, infiltrates or edema. The cardiac silhouette is normal in siz e. The trachea is in midline. Visualized bones are unremarkable for age IMPRESSION: 1. No acute cardiopulmonary process is seen Report Dictated By: Leilani Chow MD at 08/24/2018 2:26 PM Report E-Signed By: Leilani Chow MD at 08/24/2018 2:27 PM WSN:[email or web address]
--- NOTE | 2018-08-24 14:32 | RADIOLOGY IMAGING REPORT ---
FACILITY: [facility] PATIENT NAME: Edmund Araiza : 1995 MR: [id number] V: [id number] EXAM DATE: ORDERING PHYSICIAN: QUINCY SHETH TECHNOLOGIST: [place] [facility] [place] Patient: Edmund Araiza : 1995 Visit/Account:[id number] Date of Sevice: 08/24/2018 Exam type: ABDOMEN AP ERECT AND/OR DECUB History: cough and vomiting blood Comparison: None. Findings: Supine and upright views the abdomen demonstrate a nonspecific bowel gas pattern. There is no gross evidence of organomegaly or pathologic intra-abdominal calcifications IMPRESSION: 1. Nonspecific bowel gas pattern Report Dictated By: Leilani Chow MD at 08/24/2018 2:27 PM Report E-Signed By: Leilani Chow MD at 08/24/2018 2:28 PM WSN:[email or web address]
[2018-08-24] MEDS ORDERED: ONDA4TAB9 PO (14:41)
[2018-08-24 14:44] VITALS: BP 113/72
== END 2018-08-24 14:59 | disposition home or self-care (01) ==
LOC: ER 13:40
DX: K52.9 Noninfective gastroenteritis and colitis, unspecified (principal); R05 Cough
CPT/HCPCS: 71046; 74019; 81001; 82150; 83690; 85025; 86677; 96361; 96374; 99284; J2405; J7030; 82040; 82247; 82310; 82374; 82435; 82565; 82947; 84075; 84132; 84155; 84295; 84450; 84460; 84520

== ENCOUNTER 2018-10-26 21:38 | Emergency (ER) | payer OTHER ==
[2018-10-26] MEDS ORDERED: DIPHTH/TETANUS/ACEL. PERTUSSIS IM ONLY ONE (21:45)
[2018-10-26] MEDS ORDERED: NS(*) 0.9% 1000 ML BAG 1,000 ML IV ONE (21:45)
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
[2018-10-26] MEDS ORDERED: IOPAMIDOL 76% 100 ML INFUS BTL 100 ML ONE (22:07)
[2018-10-26] MEDS ORDERED: fentaNYL CITR 100 MCG/2 ML AMP IVP ONE ×2 (22:15→23:10)
[2018-10-26 22:31] LABS: PLATELET COUNT, AUTOMATED 228 K/uL (150-450)
[2018-10-26 22:43] LABS: INR 1.03
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
[2018-10-27] MEDS ORDERED: NS(*) 0.9% 1000 ML BAG 1,000 ML IV ONE (00:40)
[2018-10-27] MEDS ORDERED: PROPOFOL EMUL 10MG/ML 20 ML VL IVP ONE (00:50)
[2018-10-27] MEDS ORDERED: fentaNYL CITR 100 MCG/2 ML AMP IVP ONE (01:25)
[2018-10-27 02:10] VITALS: BP 132/73
--- NOTE | 2018-10-27 02:19 | RADIOLOGY IMAGING REPORT ---
FACILITY: [facility] PATIENT NAME: Edmund Araiza : 1995 MR: [id number] V: [id number] EXAM DATE: ORDERING PHYSICIAN: SALENA MATAMOROS TECHNOLOGIST: Location: [facility] [place] Patient: Edmund Araiza : 1995 Visit/Account:[id number] Date of Sevice: 10/27/2018 HUMERUS LEFT HISTORY: Status post splint. COMPARISON: Left elbow and left shoulder x-rays earlier same evening. TECHNIQUE: AP and lateral views of the left humerus. FINDINGS: There is a comminuted fracture of the humeral diaphysis at the junction of the mid and dist al thirds. There is greater than one full shaft width medial and anterior displacement of the distal humerus compared to the proximal. IMPRESSION: 1. Displaced, comminuted left humeral diaphyseal fracture. Report Dictated By: Delilah Flor at 10/27/2018 2:14 AM Report E-Signed By: Delilah Flor at 10/27/2018 2:16 AM WSN:[id number]
== END 2018-10-27 02:36 | disposition short-term general hospital (02) ==
LOC: ER 21:47
DX: S12.500A Unspecified displaced fracture of sixth cervical vertebra, initial encounter for closed fracture (principal); S42.322A Displaced transverse fracture of shaft of humerus, left arm, initial encounter for closed fracture; S27.321A Contusion of lung, unilateral, initial encounter; J93.9 Pneumothorax, unspecified; S00.81XA Abrasion of other part of head, initial encounter; M54.2 Cervicalgia
CPT/HCPCS: 24505; 70450; 71045; 71260; 72125; 72170; 74177; 81001; 82040; 82247; 82310; 82374; 82435; 82565; 82947; 84075; 84132; 84155; 84295; 84450; 84460; 84520; 85025; 85610; 85730; 90471; 90715; 96361; 96374; 99285; J2704; J3010; J7030; Q9967

== ENCOUNTER → 2018-10-26 | Outpatient (CLI) | payer OTHER ==
[~2018-10-26] MED LIST changes: +HYDR-4228 PO; +ONDA4TAB9 PO
== END ==
LOC: AMB 20:50
PROVIDERS: ATTEND Nurse Practitioner
DX: M21.922 Unspecified acquired deformity of left upper arm (principal); S80.811A Abrasion, right lower leg, initial encounter; V29.9XXA Motorcycle rider (driver) (passenger) injured in unspecified traffic accident, initial encounter
CPT/HCPCS: A0425; A0433

== ENCOUNTER → 2018-10-27 | Outpatient (CLI) | payer OTHER | LOC: AMB 02:16 | PROVIDERS: ATTEND Nurse Practitioner | DX: S12.500A Unspecified displaced fracture of sixth cervical vertebra, initial encounter for closed fracture (principal); S27.329A Contusion of lung, unspecified, initial encounter; S22.39XA Fracture of one rib, unspecified side, initial encounter for closed fracture; S42.302A Unspecified fracture of shaft of humerus, left arm, initial encounter for closed fracture; V29.9XXA Motorcycle rider (driver) (passenger) injured in unspecified traffic accident, initial encounter | CPT/HCPCS: A0425; A0426 ==

== ENCOUNTER 2018-11-05 20:13 | Emergency (ER) | payer OTHER ==
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
[2018-11-05] MEDS ORDERED: BACITRACIN OINT 15 GM TUBE TP ONE (20:35)
[2018-11-05 21:00] VITALS: BP 123/73
--- NOTE | 2018-11-05 22:05 | RADIOLOGY IMAGING REPORT ---
FACILITY: [facility] PATIENT NAME: Edmund Araiza : 1995 MR: [id number] V: [id number] EXAM DATE: ORDERING PHYSICIAN: MITCH VALENCIA TECHNOLOGIST: [place] [facility] [place] Ara[place] : 1995 Visit/Account:[id number] Date of Sevice: 11/05/2018 LOWER LEG: Indication: Pain following recent injury. Technique: Multiple AP and lateral views were obtained. Comparison: None available. Findings: There is no evidence of fracture, dislocation, or other acute deformity. There is normal mi neralization of the skeletal structures. There is no evidence of soft tissue abnormality or foreign b alexis. IMPRESSION: Negative left lower leg. Report Dictated By: Bridger Vásquez MD at 11/05/2018 9:59 PM Report E-Signed By: Bridger Vásquez MD at 11/05/2018 10:00 PM WSN:[id number]
== END 2018-11-05 22:27 | disposition home or self-care (01) ==
LOC: ER 20:20
DX: S80.811A Abrasion, right lower leg, initial encounter (principal)
CPT/HCPCS: 99283

== ENCOUNTER 2018-11-08 23:03 | Emergency (ER) | payer OTHER ==
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
[2018-11-08 23:07] VITALS: BP 137/82
== END 2018-11-08 23:39 | disposition home or self-care (01) ==
LOC: ER 23:10
DX: Z48.00 Encounter for change or removal of nonsurgical wound dressing (principal)
CPT/HCPCS: 99281

== ENCOUNTER 2018-11-12 23:29 | Emergency (ER) | payer OTHER ==
[2018-11-12 23:33] VITALS: BP 112/68
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
== END 2018-11-13 | disposition home or self-care (01) ==
LOC: ER 23:51
DX: M79.605 Pain in left leg (principal)
CPT/HCPCS: 99281